=== PATIENT | male | born 1950 | race Caucasian/White ===

== ENCOUNTER 2020-10-12 08:33 | Outpatient (CLI) | payer MEDICARE, SELFPAY ==
[2020-10-12 09:07] LABS: Basophils Absolute Auto 0.1 K/mm3 (0.0-0.1); Basophils Percent Auto 0.6 % (0.2-1.2); Eosinophils Absolute Auto 0.4 K/mm3 (0-0.3); Eosinophils Percent Auto 3.5 % (0-4.4); Hematocrit 41.3 % (42.0-52.0); Hemoglobin 14.1 g/dL (14.0-18.0); Immature Granulocyte Absolute 0.03 K/mm3 (0.00-0.031); Immature Granulocyte Percent A 0.3 % (0-0.5); Lymphocytes Percent Auto 38.2 % (18.3-44.2); Mean Corpuscular HGB Conc 34.1 g/dl (32-36); Mean Corpuscular Volume 99.5 fl (80-100); Mean Platelet Volume 9.9 fl (7.4-10.4); Monocytes Absolute Auto 0.8 K/mm3 (0.1-0.6); Monocytes Percent Auto 7.5 % (2.6-8.5); Neutrophils Absolute Auto 5.4 K/mm3 (1.3-6.7); Neutrophils Percent Auto 49.9 % (45.5-73.1); Platelet Count Result 265 k/mm3 (150-375); Red Blood Count 4.15 M/mm3 (4.6-6.20); Red Cell Distribution Width 13.2 % (11.5-14.5); White Blood Count 10.7 K/mm3 (4.5-10.0)
[2020-10-12 09:19] LABS: Hemoglobin A1C 5.8 % (<5.7)
[2020-10-12 09:22] LABS: Alanine Aminotransferase 33 U/L (4-50); Albumin Level 4.2 g/dL (3.5-5.1); Alkaline Phosphatase 49 U/L (38-126); Anion Gap 4 mmol/L (8-16); Aspartate Amino Transferase 39 U/L (17-59); Bilirubin,Total 0.7 mg/dL (0.2-1.3); Blood Urea Nitrogen 15 mg/dL (9-20); Calcium 9.2 mg/dL (8.4-10.2); Carbon Dioxide 30 mmol/L (22-30); Chloride 105 mmol/L (98-107); Cholesterol 132 mg/dL (0-200); Estimated Glomerular Filt Rate > 60; Glucose 105 mg/dL (75-110); HDL Direct 36 mg/dL; Potassium 4.6 mmol/L (3.4-5.0); Sodium 139 mmol/L (137-145); Triglycerides 81 mg/dL (<150)
[2020-10-12 09:33] LABS: LDL Cholesterol Direct 82 mg/dL
[2020-10-12 09:49] LABS: Vitamin D 25 Hydroxy 36.6 ng/mL
[2020-10-12 10:08] LABS: Creatinine Urine 161.3 mg/dL
[2020-10-12 10:13] LABS: Microalbumin Urine Random 12.9 mg/L (0-16.7)
== END 2020-10-12 08:34 | disposition home or self-care (01) ==
PROVIDERS: PCP Internal Medicine; Visit Provider Internal Medicine
DX: E11.9 Type 2 diabetes mellitus without complications (principal); I10 Essential (primary) hypertension; E78.5 Hyperlipidemia, unspecified; Z79.899 Other long term (current) drug therapy; Z12.5 Encounter for screening for malignant neoplasm of prostate
CPT/HCPCS: 36415; 80053; 80061; 82043; 82306; 83036; 84153; 84443; 85025; G0103

== ENCOUNTER 2020-10-31 08:56 | Outpatient (CLI) | payer MEDICARE, SELFPAY ==
--- NOTE | ~2020-10-31 | CT_ITS ---
EXAMINATION:CT lung screening DATE: 10/31/2020 09:41 INDICATION: Personal history of tobacco dependence. Current smoker with 50 pack year history. TECHNIQUE: Computed tomography (CT) of the chest was performed without intravenous contrast. Automate d exposure control and iterative reconstruction technique were employed. The dose-length product (DLP ) was 104.91 mGy-cm. COMPARISON: None. FINDINGS: There is mild scarring at the lung apices. Calcified right lung nodules and calcified right hilar and mediastinal lymph nodes are consistent with old granulomatous disease. No pleural effusion . The heart size is normal. No pericardial effusion. There are coronary artery calcifications. There is mild thoracic spondylosis. IMPRESSION: 1. Lung-RADS category 2: Benign appearance or behavior. Continue annual screening with noncontrast lo w-dose chest CT in 12 months. Reviewed, dictated and finalized at location A. STRIPPER IMPRESSION: 1. Lung-RADS category 2: Benign appearance or behavior. Continue annual screeni ng with noncontrast low-dose chest CT in 12 months.
--- NOTE | ~2020-10-31 | US_ITS ---
EXAMINATION: US aorta [facility] DATE: 10/31/2020 10:16 DRUG AND ALCOHOL COUNSELOR INDICATION: Nicotine dependence. High cholesterol. Diabetes. TECHNIQUE: Grayscale, color Doppler, and pulsed Doppler images of the aorta and common iliac arteries were obtained. COMPARISON: None. FINDINGS: There is moderate atherosclerosis. The proximal aorta measures 2.8 cm greatest sagittal dimension. Th e mid aorta measures 2.8 cm greatest sagittal dimension. The distal aorta measures 2.3 cm greatest sa gittal dimension. The right common internal iliac artery measures 1.1 cm. The left common iliac arter y measures 1.1 cm. IMPRESSION: 1. Diffuse atherosclerosis of the aorta without aneurysm. Reviewed, dictated and finalized at location A. AND ALCOHOL COUNSELOR
== END 2020-10-31 08:57 | disposition home or self-care (01) ==
PROVIDERS: PCP Internal Medicine; Visit Provider Internal Medicine
DX: Z12.2 Encounter for screening for malignant neoplasm of respiratory organs (principal); Z87.891 Personal history of nicotine dependence; I70.0 Atherosclerosis of aorta
CPT/HCPCS: 71271; 76706

== ENCOUNTER 2022-05-08 12:24 | Outpatient (CLI) | payer MEDICARE, SELFPAY ==
--- NOTE | ~2022-05-08 | CT_ITS ---
EXAMINATION: CT lung screening DATE: 05/08/2022 12:46 INDICATION: Smoker. Nicotine dependence TECHNIQUE: Computed tomography (CT) of the chest was performed without intravenous contrast. The dose -length product was 107.82 mGy-cm. Automated exposure control and iterative reconstruction technique were employed. COMPARISON: CT dated 10/31/2020 FINDINGS: There is a 5 mm subsolid nodule in the left upper lobe, image 18. There is a 3 mm right upp er lobe nodule, image 19. No endobronchial lesions. There are several upper lobe nodules measuring 2 mm or less. No endobronchial lesions. No focal airspace disease. No endobronchial lesions. No pneumot horax. No acute osseous abnormality. IMPRESSION: 1. Lung-RADS category 2: Benign appearance or behavior. Continue annual screening with noncontrast lo w-dose chest CT in 12 months. Reviewed, dictated and finalized at location A. IMPRESSION: 1. Lung-RADS category 2: Benign appearance or behavior. Continue annual screeni ng with noncontrast low-dose chest CT in 12 months.
== END 2022-05-08 12:25 | disposition home or self-care (01) ==
LOC: ANHIMG 12:27
PROVIDERS: PCP Internal Medicine; Visit Provider Internal Medicine
DX: Z12.2 Encounter for screening for malignant neoplasm of respiratory organs (principal); Z87.891 Personal history of nicotine dependence
CPT/HCPCS: 71271

== ENCOUNTER 2022-07-10 11:15 | Outpatient (CLI) | payer MEDICARE, SELFPAY ==
[2022-07-10 11:50] LABS: Basophils Absolute Auto 0.1 K/mm3 (0.0-0.1); Basophils Percent Auto 0.5 % (0.2-1.2); Eosinophils Absolute Auto 0.5 K/mm3 (0-0.3); Eosinophils Percent Auto 3.5 % (0-4.4); Hematocrit 40.4 % (42.0-52.0); Hemoglobin 13.3 g/dL (14.0-18.0); Immature Granulocyte Absolute 0.04 K/mm3 (0.00-0.031); Immature Granulocyte Percent A 0.3 % (0-0.5); Lymphocytes Absolute Auto 3.57 K/mm3 (0.9-3.2); Lymphocytes Percent Auto 26.8 % (18.3-44.2); Mean Corpuscular HGB Conc 32.9 g/dl (32-36); Mean Corpuscular Hemoglobin 33.4 pg (26-34); Mean Corpuscular Volume 101.5 fl (80-100); Mean Platelet Volume 9.5 fl (7.4-10.4); Monocytes Absolute Auto 0.9 K/mm3 (0.1-0.6); Monocytes Percent Auto 7.1 % (2.6-8.5); Neutrophils Absolute Auto 8.3 K/mm3 (1.3-6.7); Neutrophils Percent Auto 61.8 % (45.5-73.1); Platelet Count Result 254 k/mm3 (150-375); Red Blood Count 3.98 M/mm3 (4.6-6.20); Red Cell Distribution Width 13.2 % (11.5-14.5); White Blood Count 13.3 K/mm3 (4.5-10.0)
[2022-07-10 12:28] LABS: CRP < 0.5 mg/dL (<1.0); Lactate Dehydrogenase 154 U/L (120-246)
[2022-07-10 12:45] LABS: Erythrocyte Sedimentation Rate 15 mm/hr (0-20)
[2022-07-15 18:49] LABS: EBV Nuclear Ab Antibody >600.00 U/mL (<18.00); EBV Nuclear Ab Interpretation Past; EBV Virus Capsid Ag IgM Ab <36.00 U/mL (<36.00)
== END 2022-07-10 11:16 | disposition home or self-care (01) ==
LOC: ANHLAB 11:17
PROVIDERS: PCP Internal Medicine; Visit Provider Internal Medicine Hematology & Oncology
DX: D72.820 Lymphocytosis (symptomatic) (principal)
CPT/HCPCS: 36415; 83615; 85025; 85652; 86140; 86664; 86665; 88184; 88185

== ENCOUNTER 2024-10-13 09:34 | Outpatient (CLI) | payer MEDICARE, SELFPAY ==
--- NOTE | ~2024-10-13 | CT_ITS ---
CT Scan of the Chest without Contrast: Clinical Indication: Lung cancer screening, nicotine dependence Technique: Contiguous sections were acquired throughout the chest without intravenous contrast. Dose reduction technique was used on this scan by utilizing automated exposure control and iterative recon struction technique. The dose-length product (DLP) was 83.31 mGy-cm. COMPARISON: 05/08/2022 Findings: There is no evidence of any significant mediastinal, hilar or axillary lymphadenopathy. Coronary ramses ry calcifications are present. There is no evidence of pleural or pericardial effusion. Stable 5 mm groundglass nodule right lung apex (axial image 19). Stable calcified right upper lobe gr anuloma. Images through the upper abdomen reveal no abnormalities. Impression: Lung RADS 2: Benign appearance. 12 month follow-up screening CT advised. Reviewed, dictated and finalized at [facility]. MARKETING ASSISTANT Impression: Lung RADS 2: Benign appearance. 12 month follow-up screening CT advised.
== END 2024-10-13 09:35 | disposition home or self-care (01) ==
LOC: ANHIMG 09:35
PROVIDERS: PCP Family Medicine; Visit Provider Family Medicine
DX: Z12.2 Encounter for screening for malignant neoplasm of respiratory organs (principal); Z87.891 Personal history of nicotine dependence
CPT/HCPCS: 71271

== ENCOUNTER 2025-05-23 10:37 | Emergency (ER) | payer MEDICARE, SELFPAY ==
--- NOTE | ~2025-05-23 | US_ITS ---
US scrotum doppler INDICATION: Testicular swelling TECHNIQUE: Testicular sonogram utilizing grayscale and color Doppler FINDINGS: The testes are normal in size and appearance. No focal lesions are seen. The right testes measures 3.1 x 2.5 x 2.8 cm centimeters, and the left testis measures 4 x 2.5 x 2.8 cm cm. There is c alcification lateral to the left testicle measuring 4 mm, likely benign. There is normal vascular nely w to both testes. The right and left epididymides appear normal. Large right and small left hydroceles. No evidence for varicocele. IMPRESSION: 1. Bilateral hydroceles, large on the right. Reviewed, dictated and finalized at location B.
[2025-05-23 10:43] VITALS: BP 119/64; PULSE 74; RESP 16; TEMP 36.6; O2SAT 98
--- OUTSIDE RECORDS SUMMARY | 2025-05-23 10:46 | XMS_ITS | Clinical Summary ---
Author Organization [facility] Jennifer Masonrimma Address [address] [place] [address] Care Team Providers Care Financial Retirement Plan Specialist Name Role Phone Jarrod Gruber DO Primary Care Provider [phone] Allergies No known active allergies Medications lisinopriL (PRINIVIL) 10 mg tablet Take 10 mg by mouth daily. Active simvastatin (ZOCOR) 20 mg tablet Take 20 mg by mouth daily with supper. Active metFORMIN (GLUCOPHAGE) 500 mg tablet Take 500 mg by mouth 2 times daily with meals. Active aspirin (ECOTRIN EC) 81 mg Tablet, Delayed Release (E.C.) Take 81 mg by mouth daily. Active Active Problems Problem Noted Date Diagnosed Date Lymphocytosis 07/10/2022 Family History Medical History Relation Name Comments Diabetes Brother Heart Disease Father Cancer Mother Relation Name Status Comments Brother Alive Father Mother Social History Tobacco Use Types Packs/Day Years Used Date Smoking Tobacco: Every Day Cigarettes Smokeless Tobacco: Never Tobacco Cessation:Ready to Q uit: Not Asked; Counseling Given: Not Answered Alcohol Use Standard Drinks/Week Comments Never 0 (1 standard drink = 0.6 oz pur e alcohol) Sex and Gender Information Value Date Recorded Sex Assigned at Not on file Legal Sex Male 3:34 PM CDT Gender Identity Not on file Sexual Orientation Not on file Last Filed Vital Signs Vital Sign Reading Time Taken Comments Blood Pressure 150/66 07/31/2022 11:22 AM CDT Pulse 66 07/31/2022 11:22 AM CDT Temperature 36.4 C (97.6 F) 07/31/2022 11:22 AM CDT Respiratory Rate 14 07/31/2022 11:2 2 AM CDT Oxygen Saturation 98% 07/31/2022 11: 22 AM CDT Inhaled Oxygen Concentration - - Weight 70.2 kg (154 lb 12.8 oz) 022 11:22 AM CDT Height 180.3 cm (5' 11) 07/31/2022 11: 22 AM CDT Body Mass Index 21.59 07/31/2022 11:22 AM CDT Plan of Treatment Health Maintenance Due Date Last Done Comments DIABETES ANNUAL FOOT EXAM 1967 DIABETES ANNUAL RETINAL EXAM 1967 DIABETES MICROALBUMIN ANNUAL SCREEN 1967 LDL CHOLESTEROL ANNUAL 1967 DTAP/TDAP/TD VACCINES (1 - Tdap) 1968 PNEUMOCOCCAL VACCINE 50+ YEARS (1 of 2 - PCV) 11/18/18 69 COLORECTAL SCREENING 1994 Colorectal Cancer Screening 1994 FIT-DNA Q 3 years 1994 FIT/FOBT Q 1 year 1994 Flex Sig/CT Colonography Q 5 years 1994 ZOSTER VACCINE (1 of 2) 1999 DIABETES HBA1C Q 6 MONTHS 07/07/2019 01/04/2019 RSV VACCINE (60+ or ) (1 - 1-dose 75+ series) 2024 INFLUENZA VACCINE (#1) 2025 Insurance MEDICARE PART A AND B [facility] SUPP Care Teams Financial Retirement Plan Specialist Relationship Specialty Start Date End Date Jarrod Gruber DO [address] [facility] [address] [facility] [address] [place] [address] PCP - General Internal Medicine 07/10/22
[2025-05-23 11:18] LABS: Add Urine Microscopic? YES; Appearance Urine Clear (Clear); Glucose Urine UA Negative (Negative); Leukocyte Esterase Ur 2+ LEU/UL (Negative); Need Manual Microscopic Reviewed; Nitrate Urine Negative (Negative); Non Pathogenic Casts 0-2; Specific Grav Ur 1.016 (1.001-1.035)
--- OUTSIDE RECORDS SUMMARY | 2025-05-23 11:28 | XMS_ITS | Clinical Summary ---
Author Organization [facility] Jennifer Masonrimma Address [address] [place] [address] Care Team Providers Care Interventional Tech Name Role Phone Jarrod Gruber DO Primary Care Provider [phone] Allergies No known active allergies Medications lisinopriL [...] 2025 Insurance MEDICARE PART A AND B [facility] SUPP Care Teams Interventional Tech Relationship Specialty Start Date End Date Jarrod Gruber DO [address] [facility] [address] [facility] [address] [place] [address] PCP - General Internal Medicine 07/10/22
[2025-05-23 12:00] VITALS: BP 118/68; PULSE 70; RESP 16; TEMP 36.5; O2SAT 100
--- NOTE | 2025-05-23 13:56 | ED.MALEGU ---
HPI - Male Genitourinary General Chief complaint: Urogenital-Male Stated complaint: swollen R testicle Time Seen by Provider: 05/23/25 11:12 History of Present Illness HPI Narrative: Patient is a 74-year-old male who presents ER with swelling of his testicle on the right side. Worsening over the last month. He is still able to urinate. No pain. No trauma. He would just like to know what is going on. Related Data Home Medications ?Medication ?Instructions ?Recorded ?Confirmed ?Last Taken ?Type aspirin 81 mg tablet,delayed 81 mg PO DAILY 11/22/19 08/06/22 Unknown History release (Adult Low Dose Aspirin) Allergies Allergy/AdvReac Type Severity Reaction Status Date / Time No Known Allergies Allergy Verified 08/02/24 13:59 Review of Systems Constitutional: Constitutional: Reports no additional constitutional complaints Gastrointestinal: Gastrointestinal: Reports no additional gastrointestinal complaints Genitourinary: Genitourinary: Reports no additional male genitourinary complaints PMFSH Past Medical History Medical History Hypertension Family History Family History Mother Cancer Diverticula of colon Father Diabetes mellitus Heart disease Kidney disease Social History Social History Smoking status: Current some day smoker Tobacco type: cigarettes Alcohol intake: never Lack of Transportation: No Lack of Food: Never True Current Housing: I Have Housing Concerned About Future Housing: No Difficulty Paying Gas/Electric Bills: No Difficulty Paying for Meds: No Currently Unemployed: No Education: High School Diploma/GED Difficulty w/ Childcare or Family Care: No Gender identity (if verbalized by the patient): Male Exam Narrative: GENERAL: Well-appearing, well-nourished, and in no acute distress. HEAD: Normocephalic, atraumatic. ENT: Mucous membranes moist. CHEST: Clear to auscultation. No respiratory distress. HEART: Regular rate and rhythm. Normal peripheral pulses. : Normal appearing uncircumcised penis. Foreskin retracted in glands normal. Enlarged right testicle without tenderness. EXTREMITIES: Normal range of motion. No edema. SKIN: Warm, dry, no rash. NEURO: Alert and oriented x3. PSYCH: Normal mood and affect. Course Course Emergency Course: Educated on hydrocele. Recommend follow-up with Urology. Vital Signs Vital signs: Vital Signs Temperature 97.9 F 05/23/25 10:43 Pulse Rate 74 05/23/25 10:43 Respiratory Rate 16 05/23/25 10:43 Blood Pressure 119/64 05/23/25 10:43 Pulse Oximetry 98 05/23/25 10:43 Oxygen Delivery Room Air 05/23/25 10:43 Temperature 97.9 F 05/23/25 10:43 Pulse Rate 74 05/23/25 10:43 Respiratory Rate 16 05/23/25 10:43 Blood Pressure 119/64 05/23/25 10:43 Pulse Oximetry 98 05/23/25 10:43 Oxygen Delivery Room Air 05/23/25 10:43 MDM - Male Genitourinary Lab Data Labs: Lab Results 05/23/25 Range/Units 10:58 Urine Color Yellow (Yellow) Urine Appearance Clear (Clear) Urine pH 5.0 (5.0-9.0) Ur Specific [place] 1.016 (1.001-1.035) Urine Protein Negative (Negative) mg/dL Urine Glucose (UA) Negative (Negative) mg/dL Urine Ketones Negative (Negative) mg/dL Ur Blood (Man) Negative (Negative) Urine Nitrate Negative (Negative) Urine Bilirubin Negative (Negative) Urine Urobilinogen 0.2 (<2.0) mg/dL Add Ur Microanalysis Reviewed Leukocyte Esterase Rfl 2+ H (Negative) BRITTANI/UL Urine RBC 0-2 (0-2) /hpf Urine WBC 0-5 (0-3) /hpf Ur Squamous Epith Cells None seen (Few) /hpf Urine Bacteria None seen /hpf Urine Casts 0-2 Imaging Data Radiologist's impression: ITS Impressions Scrotum Ultrasound 05/23/25 12:30 IMPRESSION: 1. Bilateral hydroceles, large on the right. Discharge Plan Discharge Clinical Impression: Hydrocele Patient Disposition: Home Condition: Stable Instructions: Hidrocele (ED) Additional Instructions: Return ER if you have increased pain in her genitals, your skin becomes red and hot, you have burning urination, or you have additional concerns. Wear supportive underwear. Patient Language: Beninese Prescriptions: No Action aspirin [Adult Low Dose Aspirin] 81 mg tablet,delayed release (DR/EC) 81 mg PO DAILY (DME) Accu-Chek Guide test strips Strip See Rx Instructions .Route Qty: 100 3RF Rx Instructions: As directed, daily simvastatin 20 mg tablet 20 mg PO DAILY Qty: 90 1RF lisinopril 10 mg tablet 10 mg PO DAILY Qty: 90 1RF Follow-up/Referrals: Soto Russell MD [Primary Care Provider] - Filiberto Solis MD [Physician] - 1 Week
[2025-05-23 14:18] VITALS: BP 120/68; PULSE 70; RESP 16; TEMP 36.6; O2SAT 98
== END 2025-05-23 14:20 | disposition home or self-care (01) ==
PROVIDERS: Physician Assistant; Emergency Provider Emergency Medicine; PCP Family Medicine
DX: N43.3 Hydrocele, unspecified (principal); I10 Essential (primary) hypertension; F17.210 Nicotine dependence, cigarettes, uncomplicated
CPT/HCPCS: 76870; 81001; 87086; 93976; 99284

== ENCOUNTER 2025-06-21 10:39 | Outpatient (CLI) | payer MEDICARE, SELFPAY ==
--- NOTE | 2025-06-21 10:49 | ECG_ITS ---
Test Date: 2025-06-21 11:17:28 Measurements Intervals [place] Rate: 54 P: 0 ID: 0 QRS: -41 QRSD: 117 T: 108 QT: 442 QTc: 420 Interpretive Statements SINUS BRADYCARDIA LEFT AXIS DEVIATION BORDERLINE AV CONDUCTION DELAY INCOMPLETE LEFT BUNDLE BRANCH BLOCK CANNOT R/O SEPTAL INFARCT, AGE INDETERMINATE PEAKED T WAVES- CONSIDER HYPERKALEMIA BASELINE ARTIFACT- I, II, III, AVR, AVL, AVF, V1-V6 ABNORMAL ECG NO PRIOR ECG FOR COMPARISON Electronically Signed On 06-21-2025 11:20:07 CDT by Man Coello D.O.
--- OUTSIDE RECORDS SUMMARY | 2025-06-21 11:08 | XMS_ITS | Clinical Summary ---
Author Organization [facility] Jennifer Masonrimma Address [address] [place] [address] Care Team Providers Care Nanotechnology Engineering Technologist Name Role Phone Jarrod Gruber DO Primary Care Provider [phone] Allergies No known active allergies Medications lisinopriL [...] 2025 Insurance MEDICARE PART A AND B [facility] SUPP Care Teams Nanotechnology Engineering Technologist Relationship Specialty Start Date End Date Jarrod Gruber DO [address] [facility] [address] [facility] [address] [place] [address] PCP - General Internal Medicine 07/10/22
== END 2025-06-21 10:40 | disposition home or self-care (01) ==
LOC: ANHSURGERY 10:44
PROVIDERS: PCP Family Medicine; Visit Provider Urology
DX: I49.9 Cardiac arrhythmia, unspecified (principal); I10 Essential (primary) hypertension; R94.39 Abnormal result of other cardiovascular function study; Z72.0 Tobacco use; I44.7 Left bundle-branch block, unspecified
CPT/HCPCS: 93005

== ENCOUNTER 2025-07-04 00:38 | Day surgery (SDC) | payer MEDICARE, SELFPAY ==
[2025-06-16 15:16] VITALS: BMI 23.8
--- NOTE | 2025-06-16 15:30 | PC.NURSE ---
Addendum entered by Caprice Her RN 06/16/25 15:43: PT and to call Dr Solis office today to get Aspirin HOLD instructions as they cannot find them in their papers. ELE Original Note: Report to the Outpatient Waiting Room, entrance under the green pavilion located off [facility], at time ___0630am____ on date __07/04/25 . Planned Procedure Time: ___0830am .? Time changes happen often and if your time is changed the preop area will call you the afternoon before. - You and your visitor will be asked to self-screen and do not enter if you have any COVID symptoms. Please call surgeon if you need to reschedule. - A mask is optional within the hospital at this time. Patients may have clear liquids (water, carbonated beverages, clear teas, apple juice) until 3 hours prior to surgery with a maximum of 20 ounces. - No food from midnight until time of surgery and no smoking, or chewing tobacco (or any form of nicotine). No chewing gum, candy or mints. (0530am) Take only the following medications with a SIP of water on the morning of surgery: ___NONE DO NOT STOP ANY OF YOUR OTHER PRESCRIPTION MEDICATIONS PRIOR TO SURGERY EXCEPT THE FOLLOWING Hold all vitamins and supplements for 3 days per anesthesiologist. Medications to discontinue per physician NONE Date to take last dose NONE Please no make-up, nail yi, hairspray, perfume, deodorant, or body powder the day of surgery.? No jewelry (including any body piercings) or valuables the day of surgery, leave them at home.? Please take a shower or bath the night before, or the morning of, surgery with an antibacterial soap.? Wear comfortable, loose fitting clothing.? - Jewelry must be removed prior to entering the operating room.? Rings and piercings that are not removed may be cut off. - The hospital will not accept responsibility for valuables.? - Please leave all valuables, including medications, at home the day of surgery. If you are going home after surgery, a licensed otr hazmat company driver must drive you home.? - NO public transportation without another adult if you receive anesthesia. - We recommend that an adult stay with you for 24 hours following discharge. - We also recommend that you do not drive, make important decision, drink alcoholic beverages, or take any drugs that were not prescribed by your health care provider for at least 24 hours after your discharge time. Follow any additional instructions given to you from your surgeon. Telephone instructions given to _Patient & Hanane and asked if any additional questions and then verbalized understanding. Patient advised to call surgeon office or pre surgery nurse liaison [phone] if any additional questions.
[2025-07-04] VITALS (8 sets, daily range): BP systolic 122–135; BP diastolic 49–80; PULSE 45–63; RESP 14–20; TEMP 36.2–36.4; O2SAT 96–99
--- OUTSIDE RECORDS SUMMARY | 2025-07-04 00:41 | XMS_ITS | Clinical Summary ---
Author Organization [facility] Jennifer Masonrimma Address [address] [place] [address] Care Team Providers Care Tool And Die Repair Name Role Phone Jarrod Gruber DO Primary Care Provider [phone] Allergies No known active allergies Medications lisinopriL [...] 2025 Insurance MEDICARE PART A AND B [facility] SUPP Care Teams Tool And Die Repair Relationship Specialty Start Date End Date Jarrod Gruber DO [address] [facility] [address] [facility] [address] [place] [address] PCP - General Internal Medicine 07/10/22
[2025-07-04] MEDS: LACTATED RINGERS 1,000 ML 30 ML IV CONT (06:45)
--- NOTE | 2025-07-04 07:05 | P.PNAN_ITS ---
Anes - Initial Pre Proc Eval Procedure: Operation Date: 07/04/25 08:30 Proposed Procedures p Right Hydrocelectomy - Filiberto Solis MD Date/Time: 07/04/25 07:05 Surgeon: Filiberto Solis MD Pre Op Diagnosis: Right Hydrocele Patient Data Age: 74 Gender: M Height: 1.75 m Weight: 71.55 kg Last Vital Signs Temp 36.4 C L 07/04/25 06:15 Pulse 63 07/04/25 06:15 Resp 18 07/04/25 06:15 BP 128/55 L 07/04/25 06:15 Pulse Ox 96 07/04/25 06:15 O2 Del Method Room Air 07/04/25 06:15 Allergies Allergy/AdvReac Type Severity Reaction Status Date / Time No Known Allergies Allergy Verified 06/16/25 15:14 Home Medications ?Medication ?Instructions ?Recorded ?Confirmed ?Type aspirin 81 mg tablet,delayed 81 mg PO DAILY 11/22/19 0 07/04/25 History release (Adult Low Dose Aspirin) simvastatin 20 mg tablet 20 mg PO DAILY #90 tabs 06/0 01/1707/04/25 Rx lisinopril 10 mg tablet 10 mg PO DAILY #90 tabs 06/2 04/1907/04/25 Rx multivitamin 1 tablet PO DAILY 06/16/25 0 07/04/25 History Patient hx anesthesia problems: none Family hx anesthesia problems: none Results Review: All pre-operative results and documents have been reviewed as part of the pre- operative evaluation. [facility] Past Medical History Medical History Hypertension Family History Family History Mother Cancer Diverticula of colon Father Diabetes mellitus Heart disease Kidney disease Social History Social History Smoking packs per day: 1 Smoking cigarettes per day: 20.0 Years smoked: 58 Smoking pack-years: 58.00 Smoking status: Current every day smoker Tobacco type: cigarettes Alcohol intake: never Substance use: never Lack of Transportation: No Lack of Food: Never True Current Housing: I Have Housing Concerned About Future Housing: No Difficulty Paying Gas/Electric Bills: No Difficulty Paying for Meds: No Currently Unemployed: No Education: High School Diploma/GED Difficulty w/ Childcare or Family Care: No Living arrangements: with family Additional living arrangements comments: Gender identity (if verbalized by the patient): Male Spiritual care concerns: No Anes - Eval Final PreProcedure Day of Procedure 07/04/25 07:05 Patient weight: normal Heart: regular rate and rhythm Lungs: clear to auscultation Airway: Mallampati scale class II Neurological: alert and oriented Last oral intake: >/= 8 hours ASA classification: III Emergent: no Anesthetic plan: proceed Anesthesia type and monitoring: general LMA and standard monitoring Results Review: All pre-operative results and documents have been reviewed as part of the pre- operative evaluation. Informed Consent: The patient's anesthetic plan and its attendant risks and benefits were discussed with the patient/family/POA. Questions were solicited and answers provided to the satisfaction of the patient/family/POA.
--- NOTE | 2025-07-04 07:21 | PM.IMHP ---
H&P: HPI History of Present Illness Date/Time: 07/04/25 07:21 Chief Complaint: right hydrocele Narrative: 74 yr old male with right hydrocele presents for right hydrocelectomy, right orchiopexy Review of Systems Review of Systems: All systems reviewed & are unremarkable except as noted in HPI and below PMFSH Past Medical History Medical History Hypertension Family History Family History Mother Cancer Diverticula of colon Father Diabetes mellitus Heart disease Kidney disease Social History Social History Smoking packs per day: 1 Smoking cigarettes per day: 20.0 Years smoked: 58 Smoking pack-years: 58.00 Smoking status: Current every day smoker Tobacco type: cigarettes Alcohol intake: never Substance use: never Lack of Transportation: No Lack of Food: Never True Current Housing: I Have Housing Concerned About Future Housing: No Difficulty Paying Gas/Electric Bills: No Difficulty Paying for Meds: No Currently Unemployed: No Education: High School Diploma/GED Difficulty w/ Childcare or Family Care: No Living arrangements: with family Additional living arrangements comments: Gender identity (if verbalized by the patient): Male Spiritual care concerns: No Meds Home Medications and Allergies Home Medications ?Medication ?Instructions ?Recorded ?Confirmed ?Type aspirin 81 mg tablet,delayed 81 mg PO DAILY 11/22/19 07/04/25 History release (Adult Low Dose Aspirin) simvastatin 20 mg tablet 20 mg PO DAILY #90 tabs 03/28/25 07/04/25 Rx lisinopril 10 mg tablet 10 mg PO DAILY #90 tabs 04/20/25 07/04/25 Rx multivitamin 1 tablet PO DAILY 06/16/25 07/04/25 History Allergies Allergy/AdvReac Type Severity Reaction Status Date / Time No Known Allergies Allergy Verified 06/16/25 15:14 Vital Signs Vital Signs - 24 hr 07/04/25 06:15 Temperature 36.4 C L Pulse Rate 63 Respiratory Rate 18 Blood Pressure 128/55 L Pulse Oximetry 96 Oxygen Delivery Room Air Exam Const: General: cooperative, comfortable and no acute distress Resp: Effort & Inspection: normal respiratory effort Cardio: Rate: regular rate Rhythm: regular rhythm : Male General Exam: Yes other (right hydrocele) Assessment and Plan Assessment and plan (1) Right hydrocele: Code(s): N43.3 - Hydrocele, unspecified Status: Acute Assessment and Plan: right hydrocelectomy with orchiopexy
--- NOTE | 2025-07-04 07:23 | WPDHPUPDATE1 ---
History and Physical Update Update Date/Time: 07/04/25 07:23 History and Physical has been reviewed, including an updated exam of the patient. There are NO changes in the patient's condition. Risks, benefits, and alternatives have been discussed and questions answered. Patient agrees to proceed with procedure.
[2025-07-04] MEDS: ceFAZolin 2 GM in SODIUM CHLORIDE 0.9% IV 50 ML 100 ML IVPB (08:22)
[2025-07-04] MEDS: LIDOCAINE 1% LOCAL INJ 10 ML VIAL 20 ML INFILTRATE (08:22)
--- NOTE | 2025-07-04 08:49 | S_PTH ---
PATIENT: Zachary Fenton LOC: [facility] U#:[id number] AGE/SX: 74/M ROOM: RE07/04/[address]: Filiberto SolisMD : 1950 BED: DIS: 07/04/2025 SPEC #: [id number] RECD: 07/04/25 10:04 STATUS: BLAISE REKaren #: [id number] DOMINGO: 07/04/25 08:[address]: Will,Filiberto Lucio DEPT: [facility] Surgical RECD BY: Licha Mims ENTERED: 07/04/25 10:04 SP TYPE: Surgical OTHR DR: Soto Russell MD Tissues: A - Hydrocele Sac Procedures: Gross and Microscopic Level 2 Hematoxylin and Eosin Stain
--- NOTE | 2025-07-04 09:03 | P.OP_ITS ---
Procedure Note - Detailed Date of Procedure 07/04/25 Pre-op Diagnosis Right Hydrocele Post-op Diagnosis Same Procedure Performed Right hydrocelectomy with orchiopexy Surgeon Filiberto Solis MD Anesthesia General Description of Procedure the patient was taken to the operative suite correctly identified. Once anesthesia was obtained was placed in the supine position and prepped and draped usual sterile fashion. Transverse incision was made in the right hemiscrotum. This carried down through the tunical layers. The hydrocele was brought out the operative field. It was incised and drained of approximately 350 cc of straw- colored fluid. The excess tissue was excised. Appendix testes was fulgurated. Orchiopexy was performed using Ethibond in a three-point fixture. Quarter-inch [place] drain was placed in secured. [place] was closed using 3-0 chromic in a running fashion as was the skin. Skin was anesthetized with 1% lidocaine without epinephrine. Patient tolerated procedure well without any complications and was taken recovery stable condition. He will remove the drain on or Thursday if minimal drainage. Follow-up in a couple of weeks. This completes dictation. Please send a copy of op note to my office. Estimated Blood Loss 5 Drains Yes Packing No Pathology Yes Complications No immediate complications Condition Stable Disposition PACU
== END 2025-07-04 10:42 | disposition home or self-care (01) ==
PROVIDERS: PCP Family Medicine; Visit Provider Urology
PROC: (CPT 55040; principal; 2025-07-04 08:30)
DX: N43.3 Hydrocele, unspecified (principal); I10 Essential (primary) hypertension; F17.210 Nicotine dependence, cigarettes, uncomplicated; Z79.82 Long term (current) use of aspirin; Z80.9 Family history of malignant neoplasm, unspecified; Z82.49 Family history of ischemic heart disease and other diseases of the circulatory system
CPT/HCPCS: 55040; 54640; 88302; J0690; A9270; J1100; J2003; J2405; J2704; J7120